=== PATIENT | male | born 1975 | race Hispanic/Latino ===

== ENCOUNTER 2019-09-08 22:07 | Observation (INO) | payer BC ==
[~2019-09-08] VITALS: Ht 162.6 cm; Wt 86.6 kg
--- NOTE | 2019-09-08 22:07 | NUR ---
PT TO ROOM 10 BY EMS. PT HAS INTERMITTENT CHEST PAIN FOR A WHILE. PT HAD PAIN ABOUT 30 MINUTES AGO, TOOK A NTG SL AND "BECAME UNRESPONSIVE WITH EYES WIDE OPEN"
--- NOTE | 2019-09-08 22:15 | NUR ---
WHILE DR ARANGO IN ROOM FOR EXAM AND EUGENE IN FOR TRANSLATION, PT INFORMED AND EUGENE THAT HE AGREES TO HAVE TEST DONE BUT HE DOES NOT WANT TO STAY IN THE HOSPITAL. EMS TOLD US IN REPORT THEY HAD TO CONVINCE PT TO COME IN TO THE ER HE DID NOT WANT TO COME.
[2019-09-08 22:49] LABS: HEMATOCRIT 42.8 % (39.0-50.0); IMMATURE GRANULOCYTES 0.3 % (0.0-5.0); MEAN CELL VOLUME 90.1 fL CALC (80.0-100.0); MEAN CORPUSCULAR HGB 29.5 pG CALC (26.0-32.0); MEAN CORPUSCULAR HGB CONC 32.7 g/dL CAL (32.0-36.0); NEUT# 5.7 thou/uL (1.82-7.42); RED BLOOD COUNT 4.75 mill/uL (4.70-6.10); RED CELL DISTRI WIDTH 12.7 % (11.5-15.5)
[2019-09-08 23:08] LABS: ALBUMIN 4.5 g/dL (3.2-5.0); ALKALINE PHOSPHATASE 74 u/l (38-126); ANION GAP 10 (6-22 (CALC)); BILIRUBIN, TOTAL 0.3 mg/dL (0.0-1.4); BUN 15 mg/dL (9-20); BUN/CREATININE RATIO 15 (12-20 (CALC)); CARBON DIOXIDE 26 mmol/l (22-30); CHLORIDE 104 mmol/l (95-108); GFR > 60 ML/MIN (>=60 (CALC)); GFR FOR AFR.AMER. > 60 ML/MIN (>=60 (CALC)); POTASSIUM 3.9 mmol/l (3.5-5.1); SGOT/AST 23 u/l (17-59); SODIUM 136 mmol/l (137-146); TOTAL PROTEIN 7.4 g/dL (6.3-8.2)
--- NOTE | 2019-09-08 23:15 | NUR ---
PT BACK FROM CT WAITING ON RESULTS. NO CHANGE IN PAIN.
[2019-09-08 23:20] LABS: MYOGLOBIN 36 ng/mL (0 - 121)
--- NOTE | 2019-09-09 | NUR ---
PT CALLED ASKING IF HE CAN GO NOW.
--- NOTE | 2019-09-09 00:21 | NUR ---
ALL TEST RESULTS ON CHART EXCEPT FOR URINE. PT STILL DOES NOT WANT TO STAY.
--- NOTE | 2019-09-09 00:27 | NUR ---
WENT IN TO HAVE PT SIGN AMA FORM AND PT STATED HIS CAME IN AND TOLD HIM HE SHOULD STAY SO PT AGREED TO STAY IN THE HOSPITAL.
--- NOTE | 2019-09-09 01:10 | NUR ---
NEGATIVE IGG/IGM CALLING FOR BED NUMBER.
--- NOTE | 2019-09-09 01:10 | NUR ---
BED ASSIGNED PER ED REQUEST AT THIS TIME, FAXED SBAR RECEIVED AND REVIEWED.
--- NOTE | 2019-09-09 01:35 | NUR ---
REPORT GIVEN TO JORDAN RING.
--- NOTE | 2019-09-09 01:39 | NUR ---
TELEPHONE REPORTRECEIVED FROM Anali REAL RN AT THIS TIME. ROOM 273 PREPARED FOR PTS ARRIVAL.
--- NOTE | 2019-09-09 01:42 | NUR ---
Admission Note Report Given to: JORDAN RING Transported by: X Wheelchair Stretcher Transported with: X Nurse Transporter X Patent IV O2 Heel Dipper Location: ICU X [facility]
--- NOTE | 2019-09-09 01:50 | NUR ---
PT ARRIVES TO UNIT VIA WC, ACCOMPANIED BY Anali REAL RN. PT ADMITTED TO ROOM 273. AMBULATORY TO BED. ORIENTED TO UNIT, ROOM, CALL LIGHT, AND BED/LIGH/TV CONTROLS.
[2019-09-09 01:53] VITALS: BP 148/86
--- NOTE | 2019-09-09 02:08 | NUR ---
ADMISSION ASSESMENT COMPLETED. PT DENIES CHEST PAIN OR DISCOMFORT AT THIS TIME. PLAN OF CARE REVIEWED. PT VERBALIZES UNDERSTANDING AND DENIES QUESTIONS. PERSONAL ITEMS WITHIN REACH. BED LOCKED IN LOW POSITION W/ BEDRAILS UPX2. CALL CATES WITHIN REACH, AGREES TO CALL PRN.
[2019-09-09 04:25] VITALS: BP 130/81
--- NOTE | 2019-09-09 05:49 | NUR ---
PT APPEARS TO BE SLEEPING COMFORTABLY. RESPIRATIONS REGULAR AND UNLABORED. PERSONAL ITEMS REMAIN WITHIN REACH. BED REMAINS LOCKED IN LOW POSITION W/ BEDRAILS UP X2 AND BED ALARM ON. CALL CATES REMAINS WITHIN REACH.
--- NOTE | 2019-09-09 08:55 | NUR ---
PT IS A&O X3. PT STATED HE TOOK HIS HOME MEDICATION NTIRO PILL AN HOUR AGO. EXPLAIN TO PT THAT HE CAN'T TAKE HIS OWN MEDICATION. THAT DOCTOR HAS TO ORDER MEDICATIONS. PT VERBALIZED UNDERSTANDING. PT DENIES PAIN AT THIS TIME. TELE IN PLACE. RESPS EVEN AND UN LABORED. PT IS ANXIOUS PT STATED HE WANT TO BE DC. NOTIFIED PT MD IS COMING SOON. PT DENIES ANY OTHER NEEDS. CALL LIGHT IN REACH.
[2019-09-09 09:24] VITALS: BP 140/78
[2019-09-09] MEDS ORDERED: ASPIRIN ADULT L81 M2 PO (10:26)
[2019-09-09 10:30] VITALS: BP 128/79
--- NOTE | 2019-09-09 12:03 | NUR ---
PT IS EATING HIS LUNCH WITH NO S/S OF DISTRESS NOTED. PT DENIES ANY NEEDS AT THIS TIME. CALL LIGHT IN REACH.
--- NOTE | 2019-09-09 13:57 | NUR ---
Discharge instructions given. Patient verbalizes understanding of same. Discharged in stable condition via Wheelchair to Home with spouse. All belongings sent with pt.
== END 2019-09-09 13:57 | disposition home or self-care (01) | DRG 313 ==
LOC: ED 22:07 → ED-I 09-09 00:19 → ED 09-09 00:32 → ED-I 09-09 00:33 → MS2 09-09 01:16
PROVIDERS: Family Medicine; ADMIT Internal Medicine; ATTEND Internal Medicine
DX: R07.9 Chest pain, unspecified (principal); R55 Syncope and collapse; I25.10 Atherosclerotic heart disease of native coronary artery without angina pectoris; I25.2 Old myocardial infarction; Z20.828 Contact with and (suspected) exposure to other viral communicable diseases
CPT/HCPCS: G0378; J1650

== ENCOUNTER 2022-04-13 08:44 | Emergency (ER) | payer OTHER, BC ==
[~2022-04-13] VITALS: Ht 170.2 cm; Wt 90.7 kg
[~2022-04-13 08:44] MED LIST: ASPIRIN ADULT L81 M2 PO
[2022-04-13 09:14] VITALS: BP 138/94
[2022-04-13 09:30] VITALS: BP 137/87
[2022-04-13 10:00] VITALS: BP 117/73
[2022-04-13 10:31] VITALS: BP 112/72
[2022-04-13] MEDS ORDERED: MOTRIN400 MG/TAB PO (10:57)
[2022-04-13] MEDS ORDERED: VOLTAREN1%GEL TOP (10:57)
[2022-04-13 11:00] VITALS: BP 119/78
== END 2022-04-13 11:14 | disposition home or self-care (01) | DRG 556 ==
LOC: ED 08:44
DX: M25.561 Pain in right knee (principal)